=== PATIENT | female | born 1975 | race African-American/Black ===

== ENCOUNTER 2016-12-24 14:03 | Emergency (ER) | payer OTHER ==
[~2016-12-24] VITALS: Ht 160 cm; Wt 66.7 kg
[~2016-12-24 14:03] MED LIST: CYCL10TA2 PO; DARU800T2 PO; EMTR1TAB8 PO; HYDR-2762 PO; HYDR25TA PO; RITO100T PO; TRAM-48 PO
[2016-12-24] MEDS ORDERED: IV NORMAL SALINE 1000ML BAG 1,000 ML IV SCH (15:30)
[2016-12-24 15:57] LABS: BASO % 1 % (0-3); EOS % 0 % (0-3); HEMATOCRIT 29.6 % (36.0-47.0); HEMOGLOBIN 10.1 g/dL (12.0-15.5); LYMPH % 33 % (24-48); MEAN CORPUSCULAR HEMOGLOBIN 29 pg (25-35); MEAN CORPUSCULAR HGB CONC 34 g/dL (31-37); MEAN CORPUSCULAR VOLUME 84 fL (79-100); MONO % 12 % (0-9); NEUT % 54 % (31-73); PLATELET COUNT 213 x10^3/uL (140-400); RED BLOOD COUNT 3.51 x10^6/uL (3.50-5.40); RED CELL DISTRIBUTION WIDTH 14.3 % (11.5-14.5)
--- NOTE | 2016-12-24 15:59 | RAD ---
Chest radiograph 12/24/2016 at 1538 hours Indication: Altered mental status, history of substance abuse. Comparison: Chest radiograph 03/04/2012 Technique: Portable upright AP view of the chest is provided. Findings: Cardiomediastinal silhouette is within normal limits. No pleural effusions, pulmonary vascular congestion or pneumothorax. The lungs are clear. Osseous structures are normal. Radiopaque BB is identified projecting over the right upper quadrant, similar to prior examination. 8 mm radiopaque density in the left upper quadrant projecting over the sigmoid flexure may represent ingested tablet. Impression: 1. No acute cardiopulmonary process. 2. Ovoid radiopaque density in the sigmoid flexure may represent an ingested tablet.
--- NOTE | 2016-12-24 16:03 | EKG ---
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
[2016-12-24 16:08] LABS: CALCIUM 8.6 mg/dL (8.5-10.1); CREATININE 0.8 mg/dL (0.6-1.0); GFR 95.2; POTASSIUM 3.8 mmol/L (3.5-5.1)
[2016-12-24 16:21] LABS: BARBITURATES NEG (NEG); BENZODIAZEPINES NEG (NEG); CANNABINOIDS NEG (NEG); COCAINE POS (NEG); METHADONE NEG (NEG); OPIATES NEG (NEG); PHENCYCLIDINE NEG (NEG)
[2016-12-24 16:22] LABS: ALBUMIN 3.2 g/dL (3.4-5.0); ALBUMIN/GLOBULIN RATIO 0.8 (1.0-1.7); TOTAL BILIRUBIN 0.4 mg/dL (0.2-1.0); TOTAL PROTEIN 7.1 g/dL (6.4-8.2)
[2016-12-24] MEDS ORDERED: IV NORMAL SALINE 1000ML BAG 1,000 ML IV ONE (18:45)
[2016-12-24 20:37] VITALS: BP 197/89
--- NOTE | 2016-12-24 21:10 | PHYS DOC ---
Past Medical History Past Medical History: HIV Past Surgical History: , Tubal ligation Additional Information: "Cigars." Alcohol Use: Occasionally Drug Use: Cocaine Adult General Chief Complaint Chief Complaint: SUBSTANCE ABUSE HPI HPI 41-year-old female with a history of drug abuse now brought to the emergency department for evaluation after cocaine enjoyment. Patient is very restless but denies any specific complaint. She says she is cocaine earlier today. No chest pain or shortness of breath. No headache or stiff neck. She denies intentional overdose or depression. States she was just enjoying herself Review of Systems Review of Systems Constitutional: Denies fever or chills [] Eyes: Denies change in visual acuity, redness, or eye pain [] HENT: Denies nasal congestion or sore throat [] Respiratory: Denies cough or shortness of breath [] Cardiovascular: No additional information not addressed in HPI [] GI: Denies abdominal pain, nausea, vomiting, bloody stools or diarrhea [] : Denies dysuria or hematuria [] Musculoskeletal: Denies back pain or joint pain [] Integument: Denies rash or skin lesions [] Neurologic: Denies headache, focal weakness or sensory changes [] Endocrine: Denies polyuria or polydipsia [] Current Medications Current Medications Current Medications Medications (Trade) Dose Ordered Sig/Linda Start Time Stop Time Status Last Admin Dose Admin Lorazepam (Ativan) 1 mg 1X ONCE 12/24/16 15:30 12/24/16 15:31 DC 12/24/16 16:02 1 MG Sodium Chloride 1,000 ml @ 125 mls/hr 1X ONCE 12/24/16 18:45 12/25/16 02:44 12/24/16 18:34 125 MLS/HR Allergies Allergies Allergies Coded Allergies Type Severity Reaction Last Updated Verified Penicillins Allergy Intermediate HIVES, THROAT SWELLING 03/22/15 Yes Physical Exam Physical Exam Emaciated 41-year-old female restless appearing no acute distress. Patient is resting with her eyes closed when addressed verbally she does awaken and communicate becomes very restless. Constitutional: Elderly weak-appearing and awaited suggest chronic poor nutrition, no acute distress, non-toxic appearance. [] HENT: Normocephalic, atraumatic, bilateral external ears normal, oropharynx moist, no oral exudates, nose normal. [] Eyes: PERRLA, EOMI, conjunctiva normal, no discharge. [] Neck: Normal range of motion, no tenderness, supple, no stridor. [] Cardiovascular:Heart rate regular rhythm, no murmur [] Lungs & Thorax: Bilateral breath sounds clear to auscultation [] Abdomen: Bowel sounds normal, soft, no tenderness, no masses, no pulsatile masses. [] Skin: Warm, dry, no erythema, no rash. [] Back: No tenderness, no CVA tenderness. [] Extremities: No tenderness, no cyanosis, no clubbing, ROM intact, no edema. [] Neurologic: Alert and oriented but restless normal motor function, normal sensory function, no focal deficits noted. [] Psychologic: Patient is communicative and cooperative however her mood and affect are consistent with being under the influence of cocaine Current Patient Data Vital Signs Vital Signs Date Time Temp Pulse Resp B/P (MAP) Pulse Ox O2 Delivery O2 Flow Rate FiO2 12/24/16 18:08 67 14 112/80 (91) 97 Room Air 12/24/16 14:03 98.2 98.2 Lab Values Laboratory Tests Test 12/24/16 15:49 12/24/16 15:50 12/24/16 16:00 POC Troponin I 0.00 ng/ml (<0.08) White Blood Count 6.0 x10^3/uL (4.0-11.0) Red Blood Count 3.51 x10^6/uL (3.50-5.40) Hemoglobin 10.1 g/dL (12.0-15.5) L Hematocrit 29.6 % (36.0-47.0) L Mean Corpuscular Volume 84 fL (79-100) Mean Corpuscular Hemoglobin 29 pg (25-35) Mean Corpuscular Hemoglobin Concent 34 g/dL (31-37) Red Cell Distribution Width 14.3 % (11.5-14.5) Platelet Count 213 x10^3/uL (140-400) Neutrophils (%) (Auto) 54 % (31-73) Lymphocytes (%) (Auto) 33 % (24-48) Monocytes (%) (Auto) 12 % (0-9) H Eosinophils (%) (Auto) 0 % (0-3) Basophils (%) (Auto) 1 % (0-3) Neutrophils # (Auto) 3.3 x10^3uL (1.8-7.7) Lymphocytes # (Auto) 2.0 x10^3/uL (1.0-4.8) Monocytes # (Auto) 0.7 x10^3/uL (0.0-1.1) Eosinophils # (Auto) 0.0 x10^3/uL (0.0-0.7) Basophils # (Auto) 0.0 x10^3/uL (0.0-0.2) Sodium Level 139 mmol/L (136-145) Potassium Level 3.8 mmol/L (3.5-5.1) Chloride Level 104 mmol/L (98-107) Carbon Dioxide Level 28 mmol/L (21-32) Anion Gap 7 (6-14) Blood Urea Nitrogen 11 mg/dL (7-20) Creatinine 0.8 mg/dL (0.6-1.0) Estimated GFR (Cockcroft-Gault) 95.2 BUN/Creatinine Ratio 14 (6-20) Glucose Level 89 mg/dL (70-99) Calcium Level 8.6 mg/dL (8.5-10.1) Total Bilirubin 0.4 mg/dL (0.2-1.0) Aspartate Amino Transferase (AST) 25 U/L (15-37) Alanine Aminotransferase (ALT) 19 U/L (14-59) Alkaline Phosphatase 64 U/L (46-116) Total Protein 7.1 g/dL (6.4-8.2) Albumin 3.2 g/dL (3.4-5.0) L Albumin/Globulin Ratio 0.8 (1.0-1.7) L Salicylates Level < 2.8 mg/dL (2.8-20.0) L Salicylate Last Dose Date Salicylate Last Dose Time Acetaminophen Level < 2 mcg/ml (10-30) L Acetaminophen Last Dose Date Acetaminophen Last Dose Time Urine Opiates Screen Neg (NEG) Urine Methadone Screen Neg (NEG) Urine Barbiturates Neg (NEG) Urine Phencyclidine Screen Neg (NEG) Urine Amphetamine/Methamphetamine Neg (NEG) Urine Benzodiazepines Screen Neg (NEG) Urine Cocaine Screen Pos (NEG) Urine Cannabinoids Screen Neg (NEG) Urine Ethyl Alcohol Neg (NEG) Laboratory Tests 12/24/16 15:50 Laboratory Tests 12/24/16 15:50 EKG EKG Normal sinus rhythm at 60 normal axis no STEMI [] Radiology/Procedures Radiology/Procedures [] Course & Med Decision Making Course & Med Decision Making Pertinent Labs and Imaging studies reviewed. (See chart for details) Workup unremarkable patient with gradual resolution of her pain intoxication. EKG and labs benign except hemoglobin 10.1 likely a chronic finding. Patient gradually improved on multiple re-exams. No further workup or treatment indicated. Patient was hydrated extensively she agrees with outpatient follow- up and strict return precautions given [] Dragon Disclaimer Dragon Disclaimer This electronic medical record was generated, in whole or in part, using a voice recognition dictation system. Departure Departure Impression: Primary Impression: Cocaine abuse Additional Impression: Mild anemia Disposition: HOME, SELF-CARE Condition: IMPROVED Referrals: UNKNOWN PCP NAME (PCP) Patient Instructions: Cocaine Abuse and Chemical Dependency Additional Instructions: Clearly we recommend that you not abuse cocaine. Anemia.Drink plenty of fluids and avoid drug abuse. Follow-up with your doctor tomorrow and return immediately for new severe worsening symptoms. Problem Qualifiers AROLDO VIVAR MD Dec 24, 2016 21:10
== END 2016-12-24 21:30 | disposition home or self-care (01) ==
LOC: ER 14:03
DX: F14.10 Cocaine abuse, uncomplicated (principal); D64.9 Anemia, unspecified; Z88.0 Allergy status to penicillin
CPT/HCPCS: 36415; 71010; 80053; 80305; 80320; 80329; 84484; 85027; 93005; 96361; 96374; 99285; J2060; J7030; G0481